=== PATIENT | male | born 1995 | race African-American/Black ===

== ENCOUNTER 2022-04-20 12:51 | Emergency (ER) | payer OTHER, SELFPAY ==
[2022-04-20 13:00] VITALS: BP 149/98; PULSE 85; RESP 16; TEMP 36.2; O2SAT 100
--- NOTE | 2022-04-20 13:27 | ED.SKABFB ---
HPI - Skin/Abscess/Foreign Bdy General Chief complaint: Skin/Abscess/Foreign Body Stated complaint: Rash Time Seen by Provider: 04/20/22 13:28 Source: patient Mode of arrival: ambulatory Limitations: no limitations History of Present Illness HPI narrative: 26 yo M presents with rash to arms, shoulders, ABD for several weeks. no itching or pain. Has not tried any OTC remedies. does not have a PCP. All systems reviewed and negative except as noted above. Related Data Allergies Allergy/AdvReac Type Severity Reaction Status Date / Time No Known Allergies Allergy Verified 04/20/22 13:17 Review of Systems Review of Systems: CONSTITUTIONAL: Denies fever, chills, or sweats. EYES: Denies visual changes, redness, or discharge. ENT: Denies rhinorrhea, congestion, sore throat, or otalgia. CARDIOVASCULAR: Denies chest pain, palpitations, or edema. RESPIRATORY: Denies cough or dyspnea. GASTROINTESTINAL: Denies abdominal pain, nausea, vomiting, or diarrhea. GENITOURINARY: Denies dysuria or hematuria. SKIN: Reports rash. Denies itching. MUSCULOSKELETAL: Denies back pain, joint pain, or myalgia. NEUROLOGIC: Denies headache, numbness, or weakness. PSYCHIATRIC: Denies anxiety or depression. All other systems reviewed are negative, except as documented in HPI. PMFSH Social History Social History Second hand tobacco smoke exposure: Yes Comments At time of signature, agree with nursing past medical, surgical, social and family history. There is no relevant family history pertinent to the presenting complaint. Exam Narrative: GENERAL: This is a well-nourished, well-developed patient, in no apparent distress. HEAD: normocephalic, atraumatic. EYES: PERRL. Sclera clear/white. Vision is grossly intact. EARS: External ears normal NOSE: External nose normal NECK: Neck supple, non-tender without lymphadenopathy, masses or thyromegaly. CARDIOVASCULAR: Regular rate and rhythm without murmurs, gallops, or rubs. RESPIRATORY: Clear to auscultation. Breath sounds equal bilaterally. No wheezes, rales, or rhonchi. SKIN: warm, Dry, intact, good texture and turgor. flat spots in clusters to to R shoulder, ABD, AC area of both arms. whitish or silver in appearance. no erythema or swelling. no drainage. NEURO: awake, alert, and oriented to person, place and time. There were no obvious focal neurologic abnormalities. EXTREMITIES: No joint tenderness, effusion, or edema noted. No calf tenderness. Negative Homans sign bilaterally. Course Course Level of Care: Express Care Visit Vital Signs Vital signs: Vital Signs Temperature 36.2 C L 04/20/22 13:00 Pulse Rate 85 04/20/22 13:00 Respiratory Rate 16 04/20/22 13:00 Blood Pressure 149/98 H 04/20/22 13:00 Pulse Oximetry 100 04/20/22 13:00 Oxygen Delivery Room Air 04/20/22 13:00 Temperature 36.2 C L 04/20/22 13:00 Pulse Rate 85 04/20/22 13:00 Respiratory Rate 16 04/20/22 13:00 Blood Pressure 149/98 H 04/20/22 13:00 Pulse Oximetry 100 04/20/22 13:00 Oxygen Delivery Room Air 04/20/22 13:00 Reviewed MDM - Skin/Abscess/Foreign Bdy MDM Narrative Medical decision making narrative: referred to dermatology for further evaluation. rash does not appear to be fungal or bacterial. possibly an eczema or contact dermatitis. Patient is aware of diagnosis, understands and agrees to treatment plan. Anticipatory guidance given. Patient agrees to follow-up as directed and is aware of reasons to seek care at the emergency department. Portions of this record may have been created with voice recognition software Discharge Plan Discharge Clinical Impression: Rash and nonspecific skin eruption Patient Disposition: Home, Self-Care Condition: Stable Instructions: Acute Rash (ED) Additional Instructions: Use steroid cream as prescribed. Follow up with [facility] for further evaluation. [facility] Address:[address] [place] [address]
== END 2022-04-20 13:42 | disposition home or self-care (01) ==
PROVIDERS: Emergency Provider Nurse Practitioner Family
DX: R21 Rash and other nonspecific skin eruption (principal)
CPT/HCPCS: 99213; G0463

== ENCOUNTER 2022-11-23 11:56 | Emergency (ER) | payer OTHER, SELFPAY ==
[2022-11-23 12:11] VITALS: BP 158/99; PULSE 87; RESP 18; TEMP 36.4; O2SAT 99
--- NOTE | 2022-11-23 12:42 | ED.URI ---
HPI - URI/Sore Throat General Chief Complaint: Upper Respiratory Infection Stated Complaint: dizziness/fever Time Seen by Provider: 11/23/22 12:35 Source: patient, RN notes reviewed and old records reviewed Mode of arrival: ambulatory Limitations: no limitations History of Present Illness HPI Narrative: 27-YEAR-OLD MALE PRESENTS TO [facility] CARE WITH COMPLAINTS OF WAKING THIS MORNING WITH HEADACHE SOME DIZZINESS BODY ACHES. PATIENT DENIES ANY SORE THROAT, EAR PAIN, ACUTE COUGH OR KNOWN FEVERS. HE REPORTS THAT WHEN HE DID WAKE UP THIS MORNING HE WAS SWEATY.PATIENT REPORTS THAT HE DID TAKE SOME ADVIL LAST NIGHT BEFORE HE WENT TO BED.Patient has not had Covid vaccinations or any flu shot. MD elicited complaint: rhinorrhea, nasal congestion and other (ACHY, HEADACHE) Onset (ago): day(s) (DAY 1 OF SYMPTOMS) Able to tolerate fluids by mouth: Yes Treatments prior to arrival: ibuprofen (LAST NIGHT) Related Data Home Medications Medication Instructions Recorded Confirmed No Home Medications 11/23/22 11/23/22 Allergies Allergy/AdvReac Type Severity Reaction Status Date / Time No Known Allergies Allergy Verified 11/23/22 12:16 Review of Systems Review of Systems: CONSTITUTIONAL: REPORTS malaise, chills, sweats, or fever. EYES: Denies visual changes, redness, or discharge. ENT: Reports rhinorrhea, congestion, sinus pain, NO otalgia NO sore throat. CARDIOVASCULAR: Denies chest pain, palpitations, or edema. RESPIRATORY: Reports NO cough.? Denies dyspnea. GASTROINTESTINAL: Denies abdominal pain, nausea, vomiting, diarrhea SKIN: Denies rash or itching. MUSCULOSKELETAL: REPORTS myalgia. NEUROLOGIC: REPORTS headache. All systems reviewed & are unremarkable except as noted in HPI and below PMFSH Past Medical History Medical History (Updated 11/24/22 @ 12:27 by Rosario Rod NP) Closed left ankle fracture Fracture of left clavicle Nasal fracture Right hand fracture Social History Social History Second hand tobacco smoke exposure: Yes Comments At time of signature, agree with nursing past medical, surgical, social and family history. There is no relevant family history pertinent to the presenting complaint Exam Narrative: GENERAL: Well-appearing, well-nourished, and in no acute distress. HEAD: Normocephalic EYES: PERRLA, conjunctivae clear ENT: Nares clear, turbinates edematous and erythematous, clear discharge. Mucous membranes moist. TM pearly jenkins with dull light reflex bilaterally; no tragal tenderness. Oropharynx erythematous without lesions. Tonsils not enlarged and without exudate, no drooling, no hoarseness, no trismus, uvula midline. NECK: Supple. No lymphadenopathy CHEST: Clear to auscultation, breath sounds equal. No wheezing, rhonchi, rales, or stridor. No respiratory distress, speaks in full sentences.SAO2 99% on room air HEART: Regular rate and rhythm. No murmur heard. SKIN: Warm, dry, no rash. NEURO: Alert and oriented x3. PSYCH: Normal mood and affect Course Course Emergency Course: Patient is aware of diagnosis, understands and agrees to treatment plan.? Anticipatory guidance given.? Patient agrees to follow-up as directed and is aware of reasons to seek care at the emergency department. Portions of this record may have been created with voice recognition software Level of Care: Express Care Visit Vital Signs Vital signs: Vital Signs Temperature 36.4 C 11/23/22 12:11 Pulse Rate 87 11/23/22 12:11 Respiratory Rate 18 11/23/22 12:11 Blood Pressure 158/99 H 11/23/22 12:11 Pulse Oximetry 99 11/23/22 12:11 Oxygen Delivery Room Air 11/23/22 12:11 Temperature 36.4 C 11/23/22 12:11 Pulse Rate 87 11/23/22 12:11 Respiratory Rate 18 11/23/22 12:11 Blood Pressure 158/99 H 11/23/22 12:11 Pulse Oximetry 99 11/23/22 12:11 Oxygen Delivery Room Air 11/23/22 12:11 Reviewed MDM - URI/Sore Throat MDM Narrative Medical decision
== END 2022-11-23 13:10 | disposition home or self-care (01) ==
PROVIDERS: Emergency Provider Registered Nurse
DX: J10.1 Influenza due to other identified influenza virus with other respiratory manifestations (principal); Z20.822 Contact with and (suspected) exposure to COVID-19
CPT/HCPCS: 87426; 87804; 99213; C9803; G0463

== ENCOUNTER 2023-02-19 10:43 | Emergency (ER) | payer BC, OTHER, SELFPAY ==
--- NOTE | 2023-02-19 10:52 | ED.URI ---
HPI - URI/Sore Throat General Chief Complaint: Upper Respiratory Infection Stated Complaint: Cough Time Seen by Provider: 02/19/23 10:52 Source: patient Mode of arrival: ambulatory Limitations: no limitations History of Present Illness HPI Narrative: Mr. Curtis is a 27-year-old male patient presenting to the clinic today with complaints of a sneezing and cough x2 days. He reports no fever, chills, body aches, sore throat, or ear pain. States he is needing a note for work. MD elicited complaint: sore throat and nasal congestion Related Data Home Medications Medication Instructions Recorded Confirmed No Home Medications 11/23/22 02/19/23 Allergies Allergy/AdvReac Type Severity Reaction Status Date / Time No Known Allergies Allergy Verified 11/23/22 12:16 Review of Systems Review of Systems: Pertinent positives per HPI. Patient denies any fever, chills, rash, headache, visual changes, dizziness, shortness of breath, chest pain, palpitations, nausea, vomiting, diarrhea, constipation, abdominal pain, or any urinary issues. [facility] Past Medical History Medical History Closed left ankle fracture Fracture of left clavicle Nasal fracture Right hand fracture Social History Social History Second hand tobacco smoke exposure: Yes Comments At the time of my signature, I reviewed and agree with the nursing past medical, surgical, social, and family history. There is no relevant family history pertinent to the patient complaint. Exam Narrative: General: Well-developed, well nourished, in no apparent distress Head: Normocephalic, atraumatic Eyes: Pupils equally round and reactive to light bilaterally, EOM intact, sclera and conjunctive clear, no discharge, lids normal Ears: TMs intact and clear, ear canals clear, no drainage, grossly hearing normal. Nose: Nares patent, clear nasal discharge, no inflammation, no sinus tenderness. Mouth: Oral pharynx without lesions or masses, good dentition, MMM. Neck: Supple, trachea midline, no enlargement of anterior or posterior cervical nodes, no thyroid masses or goiter palpable. Cardio: Regular rate and rhythm, s1 and s2 normal, no murmur appreciated. Resp: Clear to auscultation bilaterally, no rhonchi, rales, wheezing or rubs Course Course Emergency Course: Portions of this record may have been created with voice recognition software. Level of Care: Express Care Visit Vital Signs Vital signs: Vital signs reviewed MDM - URI/Sore Throat MDM Narrative Medical decision making narrative: At the time of visit patient is resting comfortably on exam table. Patient is requesting influenza testing. Testing was negative in the clinic today. This needing a note to return to work. I suspect he has allergic rhinitis. Supportive measures were discussed with the patient he voiced understanding of discharge instructions and agrees to treatment plan Differential Diagnosis Differential diagnosis: Likely upper respiratory infection, sinusitis, viral infection, bronchitis, influenza, pharyngitis and other (COVID) Discharge Plan Discharge Clinical Impression: Allergic rhinitis Qualifiers: Allergic rhinitis trigger: unspecified Allergic rhinitis seasonality: seasonal Qualified Code(s): J30.2 - Other seasonal allergic rhinitis Patient Disposition: Home, Self-Care Condition: Stable Instructions: Antibiotic Form, Allergies (ED) Additional Instructions: Influenza testing was negative in the clinic today Increase fluids and stay well hydrated Tylenol/motrin for pain/fever Flonase and OTC antihistamines as directed Vicks vapor rub to open sinuses Sinus rinses for congestion Cepacol spray, cough drops, throat lozenges, warm tea with honey/lemon, gargle salt water to soothe throat BRAT diet for diarrhea Clear liquids x 24 hours the
[2023-02-19 10:55] VITALS: BP 148/96; PULSE 79; RESP 16; TEMP 37.2; O2SAT 99
== END 2023-02-19 11:21 | disposition home or self-care (01) ==
PROVIDERS: Emergency Provider Nurse Practitioner Family
DX: J30.2 Other seasonal allergic rhinitis (principal)
CPT/HCPCS: 87804; 99213; G0463

== ENCOUNTER 2023-03-13 09:15 | Emergency (ER) | payer BC, OTHER, SELFPAY ==
--- NOTE | ~2023-03-13 | XR_ITS ---
EXAMINATION: XR hand LT min 3V DATE: 03/13/2023 09:36 INDICATION: Left hand pain. Injury. TECHNIQUE: 3 views of left hand were obtained. COMPARISON: None. FINDINGS: There is a comminuted fracture of neck of fifth metacarpal. The main distal fracture fragme nt demonstrates impaction, 11 degrees radial angulation, and 8 degrees palmar angulation. Joint space s are normal. IMPRESSION: 1. Comminuted fracture of neck of fifth metacarpal. Reviewed, dictated and finalized at location A.
[2023-03-13 09:27] VITALS: BP 147/92; PULSE 71; RESP 16; TEMP 36.5; O2SAT 99
--- NOTE | 2023-03-13 09:45 | ED.GENADULT ---
HPI - General Adult General Chief complaint: Extremity Injury, Upper Stated complaint: Left Hand Pain Source: patient Mode of arrival: ambulatory Limitations: no limitations History of Present Illness HPI narrative: Patient presents for evaluation of left hand pain. He indicates he punched a steel wall 2 days ago. He now has constant throbbing pain in the affected area. He rates his current pain as 10/10 in severity. He also has numbness and tingling in 4th and 5th digits of left hand. He has not taken any medication for his symptoms. He reports decreased ROM in 4th and 5th digits of left hand. He is right hand dominant. Related Data Allergies Allergy/AdvReac Type Severity Reaction Status Date / Time No Known Allergies Allergy Verified 03/13/23 09:35 Review of Systems Review of Systems: CONSTITUTIONAL: Denies fever, chills, or sweats. EYES: Denies visual changes, redness, or discharge. ENT: Denies rhinorrhea, congestion, sore throat, or otalgia. CARDIOVASCULAR: Denies chest pain, palpitations, or edema. RESPIRATORY: Denies cough or dyspnea. GASTROINTESTINAL: Denies abdominal pain, nausea, vomiting, or diarrhea. GENITOURINARY: Denies dysuria or hematuria. SKIN: Denies rash or itching. MUSCULOSKELETAL: Reports pain in 4th and 5th digits of left hand. Reports swelling in the left hand. NEUROLOGIC: Reports numbness and tingling in 4th and 5th digits of left hand. Denies headache, dizziness, or weakness. PSYCHIATRIC: Denies anxiety or depression. [facility] Past Medical History Medical History (Updated 03/13/23 @ 10:08 by Henry Díaz, [facility], ) Closed left ankle fracture Fracture of left clavicle Metacarpal bone fracture Nasal fracture Right hand fracture Social History Social History Second hand tobacco smoke exposure: Yes Course Course Emergency Course: this is a 27-year-old male who presented for evaluation of left hand pain. He has evidence of a fracture of the metacarpal of the 5th digit. He was placed in an ulnar gutter and provided with a sling. He should follow up with Hand surgery. Will discharge with hydrocodone. Go to the ER for intractable pain, changes in sensation or temperature. Patient in agreement with plan of care. Level of Care: Express Care Visit Vital Signs Vital signs: Vital Signs Temperature 36.5 C 03/13/23 09:27 Pulse Rate 71 03/13/23 09:27 Respiratory Rate 16 03/13/23 09:27 Blood Pressure 147/92 H 03/13/23 09:27 Pulse Oximetry 99 03/13/23 09:27 Oxygen Delivery Room Air 03/13/23 09:27 Temperature 36.5 C 03/13/23 09:27 Pulse Rate 71 03/13/23 09:27 Respiratory Rate 16 03/13/23 09:27 Blood Pressure 147/92 H 03/13/23 09:27 Pulse Oximetry 99 03/13/23 09:27 Oxygen Delivery Room Air 03/13/23 09:27 Procedures Orthopedic Splinting/Casting Injury #1: Splinting/Casting Date: 03/13/23 Splinting/Casting Time: 10:25 Side: left Upper Extremity Injury Location: hand Upper Extremity Immobilizer: ulnar gutter Splint: customized in ED OCL: ulnar gutter Pre-Procedure Neuro Vascular Exam: normal Post-Procedure Neuro Vascular Exam: normal Other Orthopedic Equipment: other (sling) Medical Decision Making Vital Signs Vital Signs: Vital Signs Temperature 36.5 C 03/13/23 09:27 Pulse Rate 71 03/13/23 09:27 Respiratory Rate 16 03/13/23 09:27 Blood Pressure 147/92 H 03/13/23 09:27 Pulse Oximetry 99 03/13/23 09:27 Oxygen Delivery Room Air 03/13/23 09:27 Temperature 36.5 C 03/13/23 09:27 Pulse Rate 71 03/13/23 09:27 Respiratory Rate 16 03/13/23 09:27 Blood Pressure 147/92 H 03/13/23 09:27 Pulse Oximetry 99 03/13/23 09:27 Oxygen Delivery Room Air 03/13/23 09:27 Imaging Data Radiologist's impression: EXAMINATION: XR hand LT min 3V DATE: 03/13/2023 09:36 INDICATION: Left
[2023-03-13] MEDS: KETOROLAC (*BKC) 60 MG/2 ML VIAL IM (09:48)
== END 2023-03-13 10:32 | disposition home or self-care (01) ==
PROVIDERS: Emergency Provider Nurse Practitioner
DX: S62.367A Nondisplaced fracture of neck of fifth metacarpal bone, left hand, initial encounter for closed fracture (principal); W22.09XA Striking against other stationary object, initial encounter
CPT/HCPCS: 29125; 73130; 96372; 99214; A4565; G0463; J1885

== ENCOUNTER 2023-08-06 11:07 | Emergency (ER) | payer BC, OTHER, SELFPAY ==
[2023-08-06 11:28] VITALS: BP 141/91; PULSE 67; RESP 18; TEMP 37.3; O2SAT 96
--- NOTE | 2023-08-06 11:51 | ED.HA ---
HPI - Headache General Chief Complaint: Headache Stated Complaint: worst headache , throwing up,chills, Time Seen by Provider: 08/06/23 11:14 Source: patient Mode of arrival: ambulatory Limitations: no limitations History of Present Illness HPI Narrative: 28-year-old male presents to [facility] with complaints of episodes of headaches , intermittent dizziness and anxiety for the past month. Patient reports that he lost both his father and younger brother approximately 1 month ago And symptoms started afterwards. patient reports that he was diagnosed with hypertension years ago, took hypertension medication at that time but has not taken meds in the past few years. Patient reports that the headaches are intermittent. Patient reports that nothing in particular makes the headaches better or worse. Patient reports he has been taking [id number] Tylenol and ibuprofen with little relief. Patient denies nausea, vomiting, diarrhea, fever, body aches or chills. Patient denies chest pains, shortness of breath, difficulties walking or talking. MD elicited complaint: headache Pertinent past history: migraines Onset (ago): month(s) (1) Onset description: gradually Pain scale (0-10): 4 Quality & Timing: aching Exacerbating factors: none Treatments prior to arrival: acetaminophen and ibuprofen Related Data Allergies Allergy/AdvReac Type Severity Reaction Status Date / Time No Known Allergies Allergy Verified 08/06/23 11:27 Review of Systems Constitutional: Constitutional: Denies chills, Denies fatigue, Denies fever(s) and Denies weakness ENT: Denies vertigo, Denies dizziness, Denies epistaxis and Denies nasal congestion Cardiovascular: Cardiovascular: Denies chest pain Respiratory: Respiratory: Denies cough, Denies dyspnea and Denies wheezing Gastrointestinal: Gastrointestinal: Denies diarrhea, Denies nausea and Denies vomiting Musculoskeletal: Musculoskeletal: Denies myalgias, Denies arthralgias and Denies joint swelling Integumentary/Breasts: Skin/Breast: Denies pruritus, Denies erythema and Denies rash Neurologic: Denies confusion, Denies vertigo, Reports dizziness, Denies syncope and Reports headache(s) Psychiatric: Comments: hx of recent loss over the past month [facility] Past Medical History Medical History Closed left ankle fracture Fracture of left clavicle Metacarpal bone fracture Nasal fracture Right hand fracture Social History Social History Second hand tobacco smoke exposure: Yes Comments At time of signature, I agree with nursing past medical, surgical, social and family history. There is no relevant family history pertinent to the presenting complaint. Exam Const: General: healthy appearing and no acute distress Nutritional Appearance: well nourished Orientation/consciousness: patient oriented x3 Limitations: no limitations HENMT: Head: normal to inspection Throat: posterior oropharynx normal and uvula midline Eyes: Conjunctivae: conjunctivae normal Neck: Neck: normal visual inspection Resp: Effort & Inspection: normal respiratory effort and not labored Auscultation: clear to auscultation bilaterally, no crackles, no rales, no rhonchi and no wheezes Cardio: Rate: regular rate Rhythm: regular rhythm Heart sounds: no murmurs Skin: General skin exam: normal color Rashes: no rashes Wounds: no wounds Neuro: General: patient oriented x3, moves all extremities, no meningeal signs, no focal motor deficits and CN's II-XI intact bilaterally Speech: normal speech Gait exam (Neuro): Normal gait present Psych: Affect: normal affect Attitude: cooperative Course Course Level of Care: Express Care Visit Vital Signs Vital signs: Vital Signs Temperature 37.3 C 08/06/23 11:28 Pulse Rate 67 08/06/23 11:28 Respiratory Rate 18 08/06/23 11:28 Blood Pressure 141/
== END 2023-08-06 12:26 | disposition home or self-care (01) ==
PROVIDERS: Emergency Provider Nurse Practitioner Family
DX: F41.9 Anxiety disorder, unspecified (principal); R51.9 Headache, unspecified
CPT/HCPCS: 99213; G0463

== ENCOUNTER 2024-05-05 11:39 | Emergency (ER) | payer BC, SELFPAY ==
[2024-05-05 12:08] VITALS: BP 143/99; PULSE 76; RESP 20; TEMP 36.5; O2SAT 99
--- NOTE | 2024-05-05 12:13 | ED.URI ---
HPI - URI/Sore Throat General Chief Complaint: Upper Respiratory Infection Stated Complaint: Sinus Time Seen by Provider: 05/05/24 12:10 Source: patient Mode of arrival: ambulatory Limitations: no limitations History of Present Illness HPI Narrative: Aristeo is a 28-year-old male patient presenting to the clinic today with complaints of sinus pressure, congestion, sore throat, and cough for the past 10 days. He reports he has felt feverish. Does have frontal and maxillary sinus pain. Drainage is yellow in color. MD elicited complaint: cough, sore throat, rhinorrhea, nasal congestion and sinus pain Related Data Allergies Allergy/AdvReac Type Severity Reaction Status Date / Time No Known Allergies Allergy Verified 05/05/24 11:58 Review of Systems Review of Systems: Pertinent positives per HPI. Patient denies any rash, visual changes, dizziness, shortness of breath, chest pain, palpitations, nausea, vomiting, diarrhea, constipation, abdominal pain, or any urinary issues. PMF Past Medical History Medical History Closed left ankle fracture Fracture of left clavicle Metacarpal bone fracture Nasal fracture Right hand fracture Social History Social History Second hand tobacco smoke exposure: Yes Comments At the time of my signature, I reviewed and agree with the nursing past medical, surgical, social, and family history. There is no relevant family history pertinent to the patient complaint. Exam Narrative: General: Well-developed, well nourished, in no apparent distress Head: Normocephalic, atraumatic Eyes: Pupils equally round and reactive to light bilaterally, EOM intact, sclera and conjunctive clear, no discharge, lids normal Ears: TMs intact and congested, ear canals clear, no drainage, grossly hearing normal. Nose: Nares patent, yellow nasal discharge, moderate inflammation, maxillary and frontal sinus tenderness. Mouth: Oral pharynx without lesions or masses, good dentition, MMM. Postnasal drip Neck: Supple, trachea midline, no enlargement of anterior or posterior cervical nodes, no thyroid masses or goiter palpable. Cardio: Regular rate and rhythm, s1 and s2 normal, no murmur appreciated. Resp: Clear to auscultation bilaterally, no rhonchi, rales, wheezing or rubs Course Course Emergency Course: Portions of this record may have been created with voice recognition software. Level of Care: Express Care Visit Vital Signs Vital signs: Vital Signs Temperature 36.5 C 05/05/24 12:08 Pulse Rate 76 05/05/24 12:08 Respiratory Rate 20 05/05/24 12:08 Blood Pressure 143/99 H 05/05/24 12:08 Pulse Oximetry 99 05/05/24 12:08 Oxygen Delivery Room Air 05/05/24 12:08 Temperature 36.5 C 05/05/24 12:08 Pulse Rate 76 05/05/24 12:08 Respiratory Rate 20 05/05/24 12:08 Blood Pressure 143/99 H 05/05/24 12:08 Pulse Oximetry 99 05/05/24 12:08 Oxygen Delivery Room Air 05/05/24 12:08 Vital signs reviewed MDM - URI/Sore Throat MDM Narrative Medical decision making narrative: At the time of visit patient is resting comfortably on the exam table. Patient appears to be nontoxic. Labs: Strep test was negative in the clinic today. We will not be sending and strep culture as I will be treating with Augmentin for a sinus infection Plan: I suspect patient has acute bacterial rhinosinusitis. Prescription for prednisone and Augmentin was sent to the pharmacy. Supportive measures were discussed with the patient and they voiced understanding discharge instructions and agrees to treatment plan. Return precautions reviewed Differential Diagnosis Differential diagnosis: Likely upper respiratory infection, otitis media, sinusitis, viral infection, bronchitis, influenza, pharyngitis and other (COVID) Discharge Plan Discharge Clinical Impression: Acute bacter
[2024-05-05 12:21] LABS: EDSTREPNEGPOS1 Presumptive Negative
== END 2024-05-05 12:24 | disposition home or self-care (01) ==
PROVIDERS: Emergency Provider Nurse Practitioner Family
DX: J01.90 Acute sinusitis, unspecified (principal)
CPT/HCPCS: 87880; 99213; G0463

== ENCOUNTER 2024-05-27 12:03 | Emergency (ER) | payer BC, SELFPAY ==
[2024-05-27 12:19] VITALS: BP 129/95; PULSE 103; RESP 16; TEMP 36.6; O2SAT 95
--- NOTE | 2024-05-27 13:14 | PC.NURSE ---
PT NOT WILLING TO STAY HE DOS NOT LIKE THE ROOM HE IS IN. SAYS HE IS DEPRESSED, ROOM WONT HELP PT AGAIN DENIED THOUGHTS OF SELF HARM PT AMBULATED OUT OF DEPT WITH STEADY GAIT
== END 2024-05-27 13:14 | disposition left against medical advice (07) ==
PROVIDERS: Emergency Provider Preventive Medicine Aerospace Medicine
DX: R31.9 Hematuria, unspecified (principal)
CPT/HCPCS: 99199

== ENCOUNTER 2024-07-07 10:35 | Emergency (ER) | payer BC, SELFPAY ==
--- NOTE | ~2024-07-07 | XR_ITS ---
EXAMINATION: XR hand RT min 3V DATE: 07/07/2024 10:56 INDICATION: Right hand injury. TECHNIQUE: 3 views of right hand were obtained. COMPARISON: Right hand radiographs 11/04/2013 FINDINGS: Alignment is normal. No acute fracture. There is an old healed fracture of neck of fifth me tacarpal. Joint spaces are normal. IMPRESSION: 1. No acute fracture. Reviewed, dictated and finalized at location A. IMPRESSION: 1. No acute fracture.
--- NOTE | 2024-07-07 10:36 | ED.UPPEXIN ---
HPI - Extremity Injury (Upper) General Chief Complaint: Extremity Injury, Upper Stated Complaint: right hand injury Time Seen by Provider: 07/07/24 10:36 Source: patient Mode of arrival: ambulatory Limitations: no limitations History of Present Illness HPI narrative: Aristeo is a 28-year-old male patient presenting to the clinic today with complaints of right hand injury. He reports that he was helping a friend move yesterday when he dropped a couch on his hand. Has a not to the dorsal aspect of the hand proximal to the 4th and 5th fingers. Pain with gripping. 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 Related Data Home Medications Medication Instructions Recorded Confirmed No Home Medications 07/07/24 07/07/24 Allergies Allergy/AdvReac Type Severity Reaction Status Date / Time No Known Allergies Allergy Verified 07/07/24 10:41 Review of Systems Review of Systems: Pertinent positives per HPI. Patient denies any fever, chills, rash, headache, visual changes, dizziness, cough, runny nose, sore throat, shortness of breath, chest pain, palpitations, nausea, vomiting, diarrhea, constipation, abdominal pain, or any urinary issues. [facility] Past Medical History Medical History Closed left ankle fracture Fracture of left clavicle Metacarpal bone fracture Nasal fracture Right hand fracture Social History Social History Second hand tobacco smoke exposure: Yes Comments At the time of my signature, I reviewed and agree with the nursing past medical, surgical, social, and family history. There is no relevant family history pertinent to the patient complaint. Exam Narrative: General: Well-developed, well nourished, in no apparent distress Head: Normocephalic, atraumatic. Cardio: Regular rate and rhythm, s1 and s2 normal, no murmur appreciated. Resp: Clear to auscultation bilaterally, no rhonchi, rales, wheezing or rubs. Musculoskeletal: No deformity, swelling/not to the right dorsal hand just proximal of the 4th 5th fingers, tender to palpation over this area, grossly normal range of motion, slight weaker head inspector and center marker strength in the right hand when compared to left, peripheral pulse strong, no edema, no cyanosis, normal gait and station Course Course Emergency Course: Portions of this record may have been created with voice recognition software. Level of Care: Express Care Visit Vital Signs Vital signs: Vital Signs Temperature 36.6 C 07/07/24 10:42 Pulse Rate 61 07/07/24 10:42 Respiratory Rate 16 07/07/24 10:42 Blood Pressure 141/101 H 07/07/24 10:42 Pulse Oximetry 98 07/07/24 10:42 Oxygen Delivery Room Air 07/07/24 10:42 Temperature 36.6 C 07/07/24 10:42 Pulse Rate 61 07/07/24 10:42 Respiratory Rate 16 07/07/24 10:42 Blood Pressure 141/101 H 07/07/24 10:42 Pulse Oximetry 98 07/07/24 10:42 Oxygen Delivery Room Air 07/07/24 10:42 Vital signs reviewed MDM - Extremity Injury (Upper) MDM Narrative Medical decision making narrative: At the time of visit patient is resting comfortably on the exam table. Patient appears to be nontoxic. Diagnostics: X-ray of the right hand was performed and was negative for any sign of fracture or malalignment. Plan: I suspect patient has a right hand contusion. Evaristo wrap and ice pack was given to the patient. Work note for today was given to the patient. Supportive measures were discussed with the patient and they voiced understanding discharge instructions and agrees to treatment plan. Return precautions reviewed Differential Diagnosis Differential diagnosis: Likely fracture of hand and other (Contusion, ganglial cyst, sprain) Imaging Data Radiologist's impression: ITS Impressions Hand X-Ray 07/07/24 10:59 IMPRESSION: 1. No acute fracture. Discharge Plan Discharge Clinical Impression: Contusion of hand
[2024-07-07 10:42] VITALS: BP 141/101; PULSE 61; RESP 16; TEMP 36.6; O2SAT 98
== END 2024-07-07 11:15 | disposition home or self-care (01) ==
PROVIDERS: Emergency Provider Nurse Practitioner Family
DX: S60.221A Contusion of right hand, initial encounter (principal); W20.8XXA Other cause of strike by thrown, projected or falling object, initial encounter
CPT/HCPCS: 73130; 99213; G0463

== ENCOUNTER 2024-08-22 09:52 | Emergency (ER) | payer BC, SELFPAY ==
[2024-08-22 10:02] VITALS: BP 140/97; PULSE 66; RESP 16; TEMP 36; O2SAT 98
--- NOTE | 2024-08-22 10:16 | ED.CHESTPAIN ---
HPI - Chest Pain General Chief Complaint: Chest Pain Stated Complaint: chest hurts, BP high Time Seen by Provider: 08/22/24 10:10 Source: patient Mode of arrival: ambulatory Limitations: no limitations History of Present Illness HPI narrative: Aristeo is a 29-year-old male patient presenting to the clinic today with complaints chest discomfort, elevated blood pressure, anxiety, and headache. He reports he feels anxious and weak at this point in time but denies any chest pain or headache currently. Has been smoking tobacco more due to stress in his life. Blood pressure was 140/97 in the clinic today. No history of hypertension, cardiac history, or migraine headaches. States that he drinks some water this morning and that made the headache go away. He reports chest pain has resolved. Had to call into work today. He denies any URI symptoms. 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 Related Data Home Medications Medication Instructions Recorded Confirmed No Home Medications 07/07/24 08/22/24 Allergies Allergy/AdvReac Type Severity Reaction Status Date / Time No Known Allergies Allergy Verified 07/07/24 10:41 Review of Systems Review of Systems: Pertinent positives per HPI. Patient denies any fever, chills, rash, headache, visual changes, dizziness, cough, runny nose, sore throat, shortness of breath, palpitations, nausea, vomiting, diarrhea, constipation, abdominal pain, or any urinary issues. [facility] Past Medical History Medical History Closed left ankle fracture Fracture of left clavicle Metacarpal bone fracture Nasal fracture Right hand fracture Social History Social History Second hand tobacco smoke exposure: Yes Comments At the time of my signature, I reviewed and agree with the nursing past medical, surgical, social, and family history. There is no relevant family history pertinent to the patient complaint. Exam Narrative: General: Well-developed, well nourished, in no apparent distress Head: Normocephalic, atraumatic Eyes: Pupils equally round and reactive to light bilaterally, EOM intact, sclera and conjunctive clear, no discharge, lids normal Ears: TMs intact and clear, ear canals clear, no drainage, grossly hearing normal. Nose: Nares patent, no discharge, no inflammation, no sinus tenderness. Mouth: Oropharynx without lesions or masses, good dentition, MMM. Tongue midline, even rise and fall of uvula Neck: Supple, trachea midline, no enlargement of anterior or posterior cervical nodes, no thyroid masses or goiter palpable. Cardio: Regular rate and rhythm, s1 and s2 normal, no murmur appreciated. Resp: Clear to auscultation bilaterally anteriorly and posteriorly, no rhonchi, rales, wheezing or rubs Musculoskeletal: No deformity, non-tender to palpation, grossly normal range of motion, muscle strength strong and equal, peripheral pulse strong, no edema, no cyanosis, normal gait and station Neuro: Alert and oriented x4 with normal speech, no focal deficits, cranial nerves I through XII intact, muscle strength 5 out of 5, sensation intact bilaterally. Extremities: No deformity, no edema, no cyanosis, capillary refill less than 2 seconds, peripheral pulses palpable and strong. Integumentary: Frankewing, warm, and dry, intact without lesion, no rashes. Course Course Emergency Course: Portions of this record may have been created with voice recognition software. Level of Care: Express Care Visit Vital Signs Vital signs: Vital Signs Temperature 36.0 C L 08/22/24 10:02 Pulse Rate 66 08/22/24 10:02 Respiratory Rate 16 08/22/24 10:02 Blood Pressure 140/97 H 08/22/24 10:02 Pulse Oximetry 98 08/22/24 10:02 Oxygen Delivery Room Air 08/22/24 10:02 Temperature 36.0 C L 08/22/24 10:02 Pulse Rate 66 08/22/24 10:02 Respiratory Rate 16 08/22/24 10:02 Blood Pressure 140/97 H 08/22/24 10:02 Pulse Oximetry 98 08/22/24 10:02 Oxygen Delivery Room Air 08/22/24 10:02 Vital signs reviewed MDM - Chest Pain MDM Narrative Medical decision making narrative: At the time of visit patient is resting comfortably on the exam table. Patient appears to be nontoxic. EKG: EKG shows sinus bradycardia with heart rate of 59 beats per minute with what appears to be repolarization/ST elevation. Does have elevated J-point. V1 has abnormal T-wave. Discussed EKG/symptomatology with Dr. Vega and recommend transfer to the ER for further evaluation Plan: Recommend transfer to the ER for further evaluation chest pain. Patient agrees to be transfer to the ER but would like to go to [facility] in [facility]. Contacted Dr. Hilton and he accepts patient for transfer. Patient to go by private car. Differential Diagnosis Differential diagnosis: Likely fracture of rib, pneumothorax, stable angina, unstable angina pectoris, atypical chest pain, st elevation myocardial infarction, costochondritis, chest pain, biliary colic and other (Migraine headache, stress headache, anxiety) ECG Data EKG #1: Attestation: I personally reviewed and interpreted this ECG as follows: ECG completion date: 08/22/24 ECG completion time: 10:20 Prior ECG tracings: not available for review Interpretation: EKG shows sinus bradycardia with heart rate of 59 beats per minute. The 1 has inverted T-wave with what appears to be early repolarization STI elevation. Patient does have elevation of the J-point. [place] interval is 151 milliseconds, QRS durations 90 milliseconds, QT-QTC is 4 her 3-402 milliseconds, P-R-T axis is 46 50 and 23. Discussed EKG with Dr. Vega and will send the patient to the ER for further evaluation. Discharge Plan Discharge Clinical Impression: Headache, Atypical chest pain Patient Disposition: Acute Care Hospital Condition: Stable Prescriptions: No Action No Home Medications Follow-up/Referrals: PHYSICIAN,INSTRUCTIONAL MEDIA SERVICES TECHNICIAN [Primary Care Provider] - Time of Disposition: 11:28 Quality NIHSS Nursing Documentation ED NIHSS nursing documentation: reviewed/agree
--- NOTE | 2024-08-22 10:17 | ECG_ITS ---
Test Date: 2024-08-22 10:20:53 Measurements Intervals Belcher Rate: 59 P: 46 HI: 151 QRS: 50 QRSD: 90 T: 23 QT: 403 QTc: 400 Interpretive Statements SINUS BRADYCARDIA ST ELEVATION IN DIFFUSE LEADS- PROBABLY EARLY REPOLARIZATION BASELINE ARTIFACT- V5 BORDERLINE ECG No previous ECG available for comparison Electronically Signed On 08-22-2024 10:31:07 CDT by Vaibhav Bell D.O.
== END 2024-08-22 11:35 | disposition short-term general hospital (02) ==
PROVIDERS: Emergency Provider Nurse Practitioner Family
DX: R51.9 Headache, unspecified (principal); R07.89 Other chest pain
CPT/HCPCS: 93005; 99213; G0463

== ENCOUNTER 2024-12-01 11:02 | Emergency (ER) | payer BC, SELFPAY ==
[2024-12-01 11:19] VITALS: BP 134/88; PULSE 85; RESP 20; TEMP 37.3; O2SAT 97
[2024-12-01 11:30] VITALS: PULSE 85; RESP 20; O2SAT 97
--- NOTE | 2024-12-01 11:50 | ED_ITS ---
HPI - URI/Sore Throat General Chief Complaint: Upper Respiratory Infection Stated Complaint: Cough/Sore Throat Time Seen by Provider: 12/01/24 11:50 Source: patient, RN notes reviewed and old records reviewed Mode of arrival: ambulatory Limitations: no limitations History of Present Illness HPI Narrative: 29-year-old male presents to the [facility] with complaints cough and sore throat. Symptoms started last night. Did take 1 dose of TheraFlu this morning. Onset (ago): hour(s) (12) Treatments prior to arrival: cold medicine Related Data Home Medications ?Medication ?Instructions ?Recorded ?Confirmed ?Last Taken ?Type No Home Medications 07/07/24 08/22/24 Unknown History Allergies Allergy/AdvReac Type Severity Reaction Status Date / Time No Known Allergies Allergy Verified 12/01/24 11:20 Review of Systems Review of Systems: All systems reviewed & are unremarkable except as noted in HPI and below Constitutional: Constitutional: Reports no additional constitutional complaints ENT: Reports as per HPI and Reports sore throat Cardiovascular: Cardiovascular: Reports no additional cardiovascular complaints, Denies chest pain and Denies dyspnea Respiratory: Respiratory: Reports as per HPI, Denies chest congestion, Reports cough and Denies dyspnea Musculoskeletal: Musculoskeletal: Reports no additional musculoskeletal complaints Integumentary/Breasts: Skin/Breast: Reports system reviewed and no additional complaints, except as docu PMFSH Past Medical History Medical History Metacarpal bone fracture Closed left ankle fracture Right hand fracture Nasal fracture Fracture of left clavicle Social History Social History Second hand tobacco smoke exposure: Yes Comments At the time of my signature, I reviewed and agree with the nursing past medical, surgical, social, and family history. There is no relevant family history pertinent to the patient complaint. Exam Const: General: cooperative, healthy appearing, comfortable, no acute distress, well developed, alert and well nourished Nutritional Appearance: well nourished Orientation/consciousness: patient oriented x3 Limitations: no limitations HENMT: Head: normal to inspection Ears: hearing grossly normal bilaterally, external ears normal, TM's normal bilaterally, EAC's normal, mastoids normal and no periauricular adenopathy Mouth: Yes Normal oral and palatal mucosa present, Yes lip normal, Yes tongue normal and Yes moist mucous membranes Throat: posterior oropharynx normal, uvula midline and no uvular edema Eyes: General: appearance normal, both eyes and all related structures Alignment and Position: alignment normal Neck: Neck: normal visual inspection, full ROM, no lymphadenopathy and no meningeal signs Chest: Chest palpation & inspection: normal inspection of the chest Resp: Effort & Inspection: normal respiratory effort and able to speak in complete sentences Auscultation: clear to auscultation bilaterally, no crackles, no rales, no rhonchi and no wheezes Cardio: Rate: regular rate Skin: General skin exam: normal color and no rashes or lesions noted Neuro: General: patient oriented x3, gait normal, moves all extremities and no meningeal signs Cognition (Neuro): normal cognition Speech: normal speech Gait exam (Neuro): Normal gait present Extrem: General: normal to inspection, full ROM, capillary refill normal and normal gait Psych: Appearance: grossly normal and well kempt Mental Status: mental status grossly normal Speech and movement: Normal speech and movement present and Clear speech present Affect: normal affect Attitude: cooperative Course Course Level of Care: Express Care Visit Vital Signs Vital signs: Vital Signs Temperature 99.1 F 12/01/24 11:19 Pulse Rate 85 12/01/24 11:19 Respiratory Rate 20 12/01/24 11:19 Blood Pressure 134/88 12/01/24 11:19 Pulse Oximetry 97 12/01/24 11:19 Oxygen Delivery Room Air 12/01/24 11:19 Temperature 99.1 F 12/01/24 11:19 Pulse Rate 85 12/01/24 11:30 Respiratory Rate 20 12/01/24 11:30 Blood Pressure 134/88 12/01/24 11:19 Pulse Oximetry 97 12/01/24 11:30 Oxygen Delivery Room Air 12/01/24 11:19 Reviewed MDM - URI/Sore Throat MDM Narrative Medical decision making narrative: Patient sitting in exam. Nontoxic, vitals stable. Patient in no acute distress. Patient presents with approximately 12 hours of URI, sore throat symptoms Flu, COVID, strep are negative Patient appropriate for outpatient treatment of viral URI Discharge instructions reviewed with patient, as well as provided in writing per nursing staff. The instructions also include specific and strict return/GO TO THE ER as well as f/u information. All questions have been answered, and the patient deny any further questions with discharge and discharge plan. Some parts of this dictation were generated by voice recognition software and may contain typographical and/or grammatical inaccuracies. Differential Diagnosis Differential diagnosis: Likely upper respiratory infection, otitis media, sinusitis, viral infection, bronchitis, influenza and pharyngitis Lab Data Labs: Lab Results 12/01/24 Range/Units 12:00 POC Influenza A Ag Negative (Negative) POC Influenza B Ag Negative (Negative) POC SARS CoV-2 Ag Negative (Negative) POC Grp A Strep Screen Negative (Negative) Reviewed Critical Care Time Critical Care Time Critical Care Time: No Discharge Plan Discharge Clinical Impression: Acute viral pharyngitis Patient Disposition: Home, Self-Care Condition: Stable Instructions: Antibiotic Form, Pharyngitis (ED) Additional Instructions: Your rapid strep swab was negative today at [facility]. A throat culture will be sent to the laboratory for further testing. If the test is positive, you will receive a phone call within 48 hours and an appropriate antibiotic will be initiated at that time. Your rapid COVID test were negative Your rapid flu test was negative Your symptoms are likely due to a viral illness, which is not treated with antibiotics. Typically viral infections last 7-10 days, can linger for couple of weeks. It is very important to treat your symptoms. Drink plenty of water, Gatorade, Pedialyte, ice pops or Jell-O. -Alternate Tylenol and Motrin per package directions for fever or pain. You can alternate every 4 hours -Antihistamine medication such as Zyrtec/Claritin/Juliet during the day can help improve symptoms. -doing daily nasal irrigations can help relieve pressure your sinuses. Things like a Neti pot -Use Flonase twice a day for 5 days then daily to help reduce the inflammation and dry up your sinuses. -You can also use Mucinex. Be sure to drink plenty of water with this medication at least 8 ounces with every dose and it is important to drink 8 to 10 glasses of water per day. Water is a natural decongestant -Eat and drink things that are easy to swallow, like tea or soup, or popsicles. -Oral rinses such as: Salt water gargles and/or may use topical anesthetic (eg. Chloraseptic spray) or lozenges to relieve dryness or throat pain). -Frequent hand washing or hand sterile processing tech is one of the best ways to prevent spread of infection. -Using a vaporizer or humidifier at night will also help thin secretions and help with coughing up phlegm. -Follow up with primary care provider in 7-10 days if condition is not improving - For new or worsening symptoms go directly to the nearest ER Patient Language: [place] Prescriptions: No Action No Home Medications Follow-up/Referrals: PHYSICIAN,COMMUNITY ORGANIZATION WORKER [Primary Care Provider] - Stand Alone Forms: Work/School Release IP Time of Disposition: 12:28
[2024-12-01 12:25] LABS: EDCOVIDSCREEN Negative (Negative)
[2024-12-01 12:26] LABS: EDINFLUASCREEN Negative (Negative); EDINFLUBSCREEN Negative (Negative); EDSTREPNEGPOS1 Negative (Negative)
== END 2024-12-01 12:35 | disposition home or self-care (01) ==
PROVIDERS: Emergency Provider Nurse Practitioner
DX: J02.8 Acute pharyngitis due to other specified organisms (principal); Z20.822 Contact with and (suspected) exposure to COVID-19
CPT/HCPCS: 87081; 87426; 87804; 87880; 99213; G0463